=== PATIENT | male | born 1985 | race Caucasian/White ===

== ENCOUNTER 2021-01-03 18:21 | Emergency (ER) | payer MEDICAID ==
[2021-01-03 18:54] VITALS: BP 140/79; PULSE 70
[2021-01-03] MEDS ORDERED: Diphtheria,Pertussis(Acell),Tetanus Vaccine 0.5 ML Syringe IM ONE (18:58)
[2021-01-03] MEDS ORDERED: Lidocaine 1% with EPINEPHrine 1:100,000 50 ML MDV SUBCUT STA (18:58)
[2021-01-03] MEDS ORDERED: Bacitracin Oint 1 GM U/D Packet TOP ONE (18:58)
--- NOTE | 2021-01-03 19:02 | EDM.PDOC ---
ED HPI GENERAL MEDICAL PROBLEM - General Chief Complaint: Laceration Stated Complaint: RIGHT HAND STAB Time Seen by Provider: 01/03/21 18:56 Source of Information: Reports: Patient, Family, RN Notes Reviewed History Limitations: Reports: No Limitations - History of Present Illness INITIAL COMMENTS - FREE TEXT/NARRATIVE: 35-year-old gentleman presents emergency department day with a laceration to his right hand he injured himself when one of the inhalers of his deer punctured into his thenar eminence on his right hand no functional complaints Right Hand Pain Score (Numeric/FACES): 4 - Related Data Allergies Allergy/AdvReac Type Severity Reaction Status Date / Time No Known Allergies Allergy Verified 02/25/16 20:53 Home Meds: Home Meds Omeprazole 20 mg PO DAILY 02/25/16 [History] Cholecalciferol (Vitamin D3) [Vitamin D3] 1,000 unit PO DAILY 01/03/21 [History] Mirtazapine 15 mg PO DAILY 01/03/21 [History] Venlafaxine [Effexor] 25 mg PO DAILY 01/03/21 [History] Past Medical History Musculoskeletal History: Reports: Other (See Below) Other Musculoskeletal History: left 5th digit FX Psychiatric History: Reports: Anxiety, Depression - Infectious Disease History Infectious Disease History: Reports: Novel Coronavirus Social & Family History - Family History Family Medical History: No Pertinent Family History - Tobacco Use Tobacco Use Status *Q: Never Tobacco User Second Hand Smoke Exposure: No - Caffeine Use Caffeine Use: Reports: Coffee, Energy Drinks, Soda - Alcohol Use Days Per Week of Alcohol Use: 2 Number of Drinks Per Day: 1 Total Drinks Per Week: 2 - Recreational Drug Use Recreational Drug Use: No ED ROS GENERAL - Review of Systems Review Of Systems: See Below Constitutional: Reports: No Symptoms Skin: Reports: Wound ED EXAM, SKIN/RASH Exam: See Below Text/Narrative:: Examination of the wound it is approximately 1 cm in length there is a flap of skin that needs to be revised no functional complaints radial pulses +2 ED SKIN PROCEDURES - Laceration/Wound Repair Right Hand Appearance: Subcutaneous, Irregular Distal NVT: Neuro & Vascular Intact, No Tendon Injury Anesthetic Type: Local Local Anesthesia - Lidocaine (Xylocaine): 1% with EPI Local Anesthetic Volume: 3cc Skin Prep: Saline Saline Irrigation (cc's): 60 Exploration/Debridement/Repair: Wound Explored, In a Bloodless Field, Explored to Base, Wound Margins Revised Closed with: Sutures Lac/Wound length In cm: 2 Suture Size: 4-0 # of Sutures: 3 Suture Type: Nylon, Interrupted Sterile Dressing Applied: Nurse Tetanus Status Addressed: Yes Complications: No Course - Vital Signs Last Recorded V/S: Last Vital Signs Temp 98.3 F 01/03/21 18:53 Pulse 70 01/03/21 18:53 Resp 16 01/03/21 18:53 BP 140/79 01/03/21 18:53 Pulse Ox 97 01/03/21 18:53 - Orders/Labs/Meds Orders: Active Orders 24 hr Category Date Time Status Vaccine to be Administered/Admin Charge [RC] ASDIRECTED Care 01/03/21 18:58 Ordered Meds: Medications Discontinued Medications Generic Name Dose Route Start Last Admin Trade Name Freq PRN Reason Stop Dose Admin Bacitracin 1 dose 01/03/21 18:58 01/03/21 19:03 Bacitracin Oint 1 Gm U/D Packet TOP 01/03/21 18:59 1 dose ONETIME ONE Administration Diphtheria/Tetanus/Acell Pertussis 0.5 ml 01/03/21 18:58 01/03/21 19:02 Diphtheria,Pertussis(Acell),Tetanus Vaccine 0.5 Ml Syringe IM 01/03/21 18:59 0.5 ml .ONCE ONE Administration Lidocaine/Epinephrine 20 ml 01/03/21 18:58 01/03/21 19:03 Lidocaine 1% With Epinephrine 1:100,000 50 Ml Mdv SUBCUT 01/03/21 18:59 20 ml NOW STA Administration Departure - Departure Time of Disposition: 19:01 Disposition: Home, Self-Care 01 Condition: Fair Clinical Impression: Laceration of right hand Qualifiers: Encounter type: initial encounter Foreign body presence: without foreign body Qualified Code(s): S61.411A - Laceration without foreign body of right hand, initial encounter - Discharge Information Instructions: Laceration Care, Adult Referrals: Coleen Lane MD [Primary Care Provider] - Forms: ED Department Discharge Sepsis Event Note (ED) - Evaluation Sepsis Screening Result: No Definite Risk - Focused Exam Vital Signs: Vital Signs Temp Pulse Resp BP Pulse Ox 01/03/21 18:53 98.3 F 70 16 140/79 97 01/03/21 18:52 98.3 F 70 16 140/79 97 - My Orders Last 24 Hours: My Active Orders 01/03/21 18:58 Vaccine to be Administered/Admin Charge [RC] ASDIRECTED - Assessment/Plan Last 24 Hours: My Active Orders 01/03/21 18:58 Vaccine to be Administered/Admin Charge [RC] ASDIRECTED Plan: Assessment Acuity = acute Site and laterality = 1 cm laceration right hand Etiology = puncture wound secondary to a deer antler Manifestations = none Location of injury = Home Lab values = none Plan Tetanus was updated today suture removal in 10 days follow-up with primary care return to the emergency department This note was dictated using [employer] voice recognition software please call with any questions on syntax or grammar.
== END 2021-01-03 19:23 | disposition home or self-care (01) ==
LOC: JP.ED 18:21
DX: S61.411A Laceration without foreign body of right hand, initial encounter (principal); Z23 Encounter for immunization; Z86.16 Personal history of COVID-19; Z79.899 Other long term (current) drug therapy; W55.39XA Other contact with other hoof stock, initial encounter
CPT/HCPCS: 12001; 90471; 90715; 99282-25

== ENCOUNTER 2024-09-06 12:04 | Emergency (ER) | payer OTHER, MEDICAID ==
[2024-09-06 13:18] VITALS: BP 146/112; PULSE 64
[2024-09-06] MEDS: Ketorolac 30 MG/ML SDV IM ONE (14:28)
[2024-09-06] MEDS: Acetaminophen/HYDROcodone 325-5 MG Tab PO ONE (14:28)
== END 2024-09-06 15:56 | disposition home or self-care (01) ==
LOC: MERGE 12:04 → JP.ED 12:04
DX: S22.42XA Multiple fractures of ribs, left side, initial encounter for closed fracture (principal); Z79.899 Other long term (current) drug therapy; V00.141A Fall from scooter (nonmotorized), initial encounter
CPT/HCPCS: 71101; 96372; 99283; A9270; J1885